=== PATIENT | female | born 1995 | race Caucasian/White ===

== ENCOUNTER → 2022-03-01 | Outpatient (CLI) | payer MEDICAID ==
[2022-03-01 10:02] LABS: HEMATOCRIT 39 % (35-52); HEMOGLOBIN 14.1 g/dL (11.5-16.0); MEAN CORPUSCULAR HEMOGLOBIN 33 pg (25-34); MEAN CORPUSCULAR HGB CONC 36 g/dL (32-36); MEAN CORPUSCULAR VOLUME 92 fL (80-99); MEAN PLATELET VOLUME 9.4 fL (9.0-12.2); PLATELET COUNT 210 10^3/uL (130-400); WHITE BLOOD COUNT 6.2 10^3/uL (4.3-11.0)
== END ==
LOC: LAB FS 09:40
PROVIDERS: ATTEND Family Medicine
DX: Z34.91 Encounter for supervision of normal pregnancy, unspecified, first trimester (principal); Z3A.08 8 weeks gestation of pregnancy
CPT/HCPCS: 36415; 85027; 86762; 86780; 86850; 86900; 86901; 87088; 87340; 87389

== ENCOUNTER → 2022-03-29 | Outpatient (CLI) | payer MEDICAID | LOC: LABNPT 09:30 | PROVIDERS: ATTEND Family Medicine | DX: Z34.91 Encounter for supervision of normal pregnancy, unspecified, first trimester (principal); Z3A.12 12 weeks gestation of pregnancy | CPT/HCPCS: 87491; 87591 ==

== ENCOUNTER → 2022-09-01 | Outpatient (CLI) | payer OTHER | LOC: LABNPT 13:17 → MERGE 13:17 | PROVIDERS: ATTEND Family Medicine | DX: B95.1 Streptococcus, group B, as the cause of diseases classified elsewhere (principal) | CPT/HCPCS: 87081 ==

== ENCOUNTER 2022-09-22 10:10 | Outpatient (CLI) | payer MEDICAID ==
[~2022-09-22] VITALS: Ht 162 cm; Wt 86.2 kg
[2022-09-22 10:30] VITALS: BP 134/76
[2022-09-22] MEDS ORDERED: PREN-37 PO (10:31)
[2022-09-22 11:05] VITALS: BP 134/76
[2022-09-22 15:00] VITALS: BP 137/77
[2022-09-22 15:50] VITALS: BP 137/77
--- NOTE | 2022-09-22 16:54 | Diagnostic Imaging Report ---
INDICATION: Variable decelerations EXAM: biophysical profile. FINDINGS: biophysical profile score was 6 out of 8. A deduction was taken on breathing. heart rate was 144 bpm. presentation is cephalic. RAYNA is 14.6. IMPRESSION: biophysical profile score was 6 out of 8. Dictated by: Dictated on workstation # [id number]
--- NOTE | 2022-09-23 08:33 | Physician Query-Final Dx ---
TRICIA,09/23/22 0833: Clinic Account Progress/Dx Physician Query: Please give diagnosis Please include # weeks gestation Date of Service Sep 22, 2022 at 10:10 CARLITOS BANKS DO 09/23/22 1013: Clinic Account Progress/Dx DIAGNOSIS: Diagnosis 37 WEEK IUP IRREGULAR CONTRACTIONS VAGINAL DISCHARGE TRICIA,AugSep 23, 2022 08:33 CARLITOS BANKS DO Sep 23, 2022 10:13
== END 2022-09-22 15:50 | disposition home or self-care (01) ==
LOC: WSo 10:10 → LDRP 10:10 → WSo 15:50
PROVIDERS: ATTEND Obstetrics & Gynecology
DX: O62.9 Abnormality of forces of labor, unspecified (principal); O23.593 Infection of other part of genital tract in pregnancy, third trimester; Z3A.37 37 weeks gestation of pregnancy
CPT/HCPCS: 76819; 99214

== ENCOUNTER 2022-10-05 06:14 | Inpatient (IN) | payer MEDICAID ==
[2022-10-05] VITALS (46 sets, daily range): BP systolic 99–129; BP diastolic 54–85
[~2022-10-05] VITALS: Ht 162.6 cm; Wt 87.2 kg
[~2022-10-05 06:14] MED LIST: PREN-37 PO
[2022-10-05] MEDS ORDERED: D5 LR IV SOLUTION 1,000 ML IV SCH (06:45)
[2022-10-05 07:11] LABS: BASOPHILS % (AUTO) 1 % (0-10); EOSINOPHILS # (AUTO) 0.1 10^3/uL (0.0-0.3); EOSINOPHILS % (AUTO) 1 % (0-10); HEMATOCRIT 36 % (35-52); HEMOGLOBIN 12.8 g/dL (11.5-16.0); LYMPHOCYTES # (AUTO) 1.4 10^3/uL (1.0-4.0); LYMPHOCYTES % (AUTO) 17 % (12-44); MEAN CORPUSCULAR HEMOGLOBIN 34 pg (25-34); MEAN CORPUSCULAR HGB CONC 35 g/dL (32-36); MEAN CORPUSCULAR VOLUME 97 fL (80-99); MEAN PLATELET VOLUME 9.8 fL (9.0-12.2); MONOCYTES # (AUTO) 0.5 10^3/uL (0.0-1.0); MONOCYTES % (AUTO) 6 % (0-12); NEUTROPHILS # (AUTO) 6.4 10^3/uL (1.8-7.8); NEUTROPHILS % (AUTO) 75 % (42-75); PLATELET COUNT 180 10^3/uL (130-400); WHITE BLOOD COUNT 8.5 10^3/uL (4.3-11.0)
[2022-10-05] MEDS ORDERED: OXYTOCIN PRE-MIX DRIP 500 ML IV ONE (07:19)
[2022-10-05] MEDS ORDERED: OXYTOCIN PRE-MIX DRIP 500 ML IV SCH (07:30)
--- NOTE | 2022-10-05 07:30 | History & Physical-OB ---
OB - Chief Complaint & HPI Date/Time Date of Admission: Date of Admission: Oct 05, 2022 at 06:26 Date seen by a Provider: Oct 05, 2022 Time Seen by a Provider: 07:15 Chief Complaint/History OB-Reason for Admission/Chief: Induction of Labor Hx : 4 Hx Para: 3 Expected Date of Delivery: Oct 06, 2022 Gestational Age in Weeks: 39 Gestational Age in Days: 6 Admission Nurse Assessment Rev: Yes History of Labs AB pos Antibody neg RI RPR NR HBsAg NR HIV NR GC neg GBS neg Allergies and Home Medications Allergies Coded Allergies: Penicillins (Verified Allergy, Mild, Hives, 09/22/22) Patient Home Medication List Home Medication List Reviewed: Yes Vit/Iron Fumarate/FA ( Tablet) 27 Mg Iron-800 Mcg Tablet, 1 EACH PO DAILY, (Reported) Entered as Reported by: AKOSUA LAMAS on 09/22/22 1031 OB - History Hx of Present Care: Yes Ultrasounds: Normal mid trimester US Obstetrical Complications: None Medical Complications: None Patient Past Medical History nc Social History/Family History 2nd Hand Smoke Exposure: No OB - Admission Exam Physical Exam HEENT: NCAT Heart: Rhythm Normal Lungs: Clear Abdomen: Gravid Extremities: Normal Reflexes: Normal Cervical Dilatation: 3cm Effacement: 75% Station: -2 Membranes: Intact Amniotic Fluid: Clear Heart Rate: 130's Accelerations: Accelerations Present Decelerations: No Decelerations Short Term Variability: Present Correction Variability: Average (6-25) Contractions on Admission: >10 Minutes Apart Intensity: Mild Labs Laboratory Tests Test 10/05/22 06:50 Range/Units White Blood Count 8.5 4.3-11.0 10^3/uL Red Blood Count 3.72 L 3.80-5.11 10^6/uL Hemoglobin 12.8 11.5-16.0 g/dL Hematocrit 36 35-52 % Mean Corpuscular Volume 97 80-99 fL Mean Corpuscular Hemoglobin 34 25-34 pg Mean Corpuscular Hemoglobin Concent 35 32-36 g/dL Red Cell Distribution Width 11.9 10.0-14.5 % Platelet Count 180 130-400 10^3/uL Mean Platelet Volume 9.8 9.0-12.2 fL Immature Granulocyte % (Auto) 0 % Neutrophils (%) (Auto) 75 42-75 % Lymphocytes (%) (Auto) 17 12-44 % Monocytes (%) (Auto) 6 0-12 % Eosinophils (%) (Auto) 1 0-10 % Basophils (%) (Auto) 1 0-10 % Neutrophils # (Auto) 6.4 1.8-7.8 10^3/uL Lymphocytes # (Auto) 1.4 1.0-4.0 10^3/uL Monocytes # (Auto) 0.5 0.0-1.0 10^3/uL Eosinophils # (Auto) 0.1 0.0-0.3 10^3/uL Basophils # (Auto) 0.0 0.0-0.1 10^3/uL Immature Granulocyte # (Auto) 0.0 0.0-0.1 10^3/uL OB - Assessment/Plan/Diagnosis Assessment Assessment: induction of labor Admission Dx 27 yo @ 39.6 week IOL GBS neg Admission Status: Inpatient Order (span 2 midnights) Reason for Inpatient Admission: IOL at 39 weeks Plan Plan: Induction Induction Method: CARLITOS SOFIA DO Oct 05, 2022 07:30
[2022-10-05] MEDS ORDERED: LACTATED RINGERS 1,000 ML IV ONE ×2 (09:53→10:45)
[2022-10-05] MEDS ORDERED: fentaNYL 2 mcg/ml BUPIVA 0.125 100 ML ONE (09:53)
[2022-10-05] MEDS ORDERED: fentaNYL INJ 100 MCG/2 ML AMP ONE (10:17)
[2022-10-05] MEDS ORDERED: BUPIVACAINE 0.25% 10 ML (SENSORCAINE) VIAL ONE (10:17)
[2022-10-05] MEDS ORDERED: ONDANSETRON 4 MG/2 ML (SDV) Z0FRAN IV PRN (10:45)
[2022-10-05] MEDS ORDERED: diphenhydrAMINE 50 MG/ML INJ (BENADRYL) IV PRN (10:45)
[2022-10-05] MEDS ORDERED: CATHETER FLUSH 10 ML SYR IV PRN (10:45)
[2022-10-05] MEDS ORDERED: NALOXONE 0.4 MG/ML 1 ML (NARCAN) VIAL IV PRN ×2 (10:45→15:00)
[2022-10-05] MEDS ORDERED: fentaNYL 2 mcg/ml BUPIVA 0.125 100 ML IV SCH (10:45)
[2022-10-05] MEDS ORDERED: CATHETER FLUSH 10 ML SYR IV SCH ×2 (14:00→22:00)
[2022-10-05] MEDS ORDERED: LIDOCAINE 1% INJ 10 ML VIAL ONE (14:17)
[2022-10-05] MEDS: OXYTOCIN PRE-MIX DRIP 500 ML IV SCH ×2 (14:41→15:17)
--- NOTE | 2022-10-05 14:55 | OB Labor & Delivery Record ---
L&D History Date of Service Date of Service: Oct 05, 2022 History Expected Date of Delivery: Oct 06, 2022 Gestational Age in Weeks: 39 Hx : 4 Hx Para: 3 Complications Events: Routine care Operative Indications (Cesarea: N/A-Vaginal Delivery Intrapartal Events: None L&D Stage1 Stage One Onset of Labor - Date: Oct 05, 2022 Monitors and Tracing Monitor Mode: External Heart Rate: 125 Station: 0 Retirement Variability: Average (6-10) Short Term Variability: Present Presentation: Vertex Vital Signs VS - Last 72 Hours, by Label 10/05/22 10/05/22 10/05/22 10/05/22 07:30 07:45 08:00 08:15 Temp 36.6 Pulse 91 72 75 75 Resp 18 18 18 18 B/P (MAP) 120/79 (93) 115/72 (86) 117/75 (89) 116/76 (89) O2 Delivery Room Air Room Air Room Air Room Air 10/05/22 10/05/22 10/05/22 10/05/22 08:30 08:45 09:00 09:15 Pulse 76 88 75 85 Resp 18 18 18 18 B/P (MAP) 120/72 (88) 117/76 (90) 123/84 (97) 121/82 (95) O2 Delivery Room Air Room Air Room Air Room Air 10/05/22 10/05/22 10/05/22 10/05/22 09:30 09:45 10:00 10:15 Pulse 77 81 80 75 Resp 18 18 18 18 B/P (MAP) 125/85 (98) 117/78 (91) 128/78 (95) 121/77 (92) O2 Delivery Room Air Room Air Room Air Room Air 10/05/22 10/05/22 10/05/22 10/05/22 10:25 10:30 10:35 10:40 Temp 36.3 Pulse 70 70 80 75 Resp 18 18 18 18 B/P (MAP) 125/63 (83) 126/84 (98) 129/74 (92) 128/79 (95) Pulse Ox 99 100 100 98 O2 Delivery Room Air Room Air Room Air Room Air 10/05/22 10/05/22 10/05/22 10/05/22 10:45 10:50 10:55 10:56 Pulse 81 66 65 62 Resp 18 18 18 18 B/P (MAP) 125/73 (90) 99/54 (69) 103/56 (72) 114/58 (76) Pulse Ox 97 97 96 O2 Delivery Room Air Room Air Room Air Room Air 10/05/22 10/05/22 10/05/22 10/05/22 11:00 11:15 11:30 11:45 Pulse 70 66 67 67 Resp 18 18 18 18 B/P (MAP) 115/66 (82) 121/72 (88) 123/76 (92) 123/76 (92) Pulse Ox 96 98 98 98 O2 Delivery Room Air Room Air Room Air Room Air 10/05/22 10/05/22 10/05/22 10/05/22 12:00 12:15 12:30 12:45 Temp 35.9 Pulse 69 59 71 70 Resp 18 18 18 18 B/P (MAP) 113/64 (80) 119/69 (86) 122/69 (86) 117/65 (82) Pulse Ox 99 100 100 98 O2 Delivery Room Air Room Air Room Air Room Air 10/05/22 10/05/22 10/05/22 10/05/22 13:00 13:15 13:30 13:45 Pulse 71 71 69 78 Resp 18 18 18 18 B/P (MAP) 113/55 (74) 111/69 (83) 126/73 (90) 113/67 (82) Pulse Ox 99 99 99 100 O2 Delivery Room Air Room Air Room Air Room Air Rupture of Membranes Spontaneous Ruture of Membrane: No Amniotic Membrane Rupture Time: 0716 Amniotic Membrane Fluid Desc.: Clear Vaginal Bleeding Description: Normal Show Induction/Anesthesia Epidural Cath Placement - Time: 1031 Progress/Notes Patient admitted for IOL. AROM performed, and pitocin augmentation started. She progressed rapidly to complete and +1 station after an epidural was placed L&D Stage2 Stage Two Stage II Date: Oct 05, 2022 Monitors and Tracing Monitor Mode: External Heart Rate: 125 Monitor Accelerations: Uniform Monitor Decelerations: Variable Retirement Variability: Average (6-10) Short Term Variability: Present Position: Right Occiput Anterior Presentation: Vertex Cord Descript/Complications Cord Vessel Description: 3 Vessels Complications nuchal reduced x 2 Delivery Type Delivery Method: Spontaneous Vaginal Anterior Shoulder: Left Episiotomy/Perineal Laceration Laceraction(s)/Extensions: Yes Episiotomy Description: Perineal Extension/lac, 1st degree Degree (describe repair) repaired using 3-0 rapide in usual fashion Condition of Delivery 1 minute Comment: 8 5 minute Comment: 9 Notes Live male infant weight 7lbs 15 oz. Condition of Condition of Infant: Living Exam: No Observed Abnormalities Resuscitation Resuscitation: N/A - Spontaneous Resp L&D Stage3 Stage Three Stage III Date: Oct 05, 2022 Pictocin Pitocin Administration mu/min: 8 Pitocin ml/hr: 8 Pitocin Administration Comment: 30 mu wide open after delivery of placenta Placenta Delivery Placenta Delivery: Spontaneous Delivery Summary Summary Estimated blood loss (mL): 200 Attending at delivery: Carlitos Banks DO Condition of Delivery Examined: Cervix Examined, Uterus Explored Post Hemorrhage: No Condition of Mother stable Condition of Infant (s) stable CARLITOS BANKS DO Oct 05, 2022 14:55
--- NOTE | 2022-10-05 14:56 | Discharge Inst-Women's Service ---
Discharge Inst-Women's Serv Depart Medication/Instructions New, Converted or Re-Newed RX: Transmitted to Pharmacy Final Diagnosis PPD 1 NVD Problems Reviewed?: Yes Consults/Follow Up Additional Follow Up: Yes Orders/Referrals Dr. Banks in 6 weeks Activity Activity: Activity as Tolerated Driving Instructions: No Driving for 1 Week NO SMOKING: NO SMOKING Nothing Inside Vagina: No Douching, No [place], No Tampons Diet Discharge Diet: No Restrictions Symptoms to Report to : Bleeding Excessive, Pain Increased, Fever Over 101 Degrees F, Vaginal Bleeding Increase, Questions/Concerns For Any Problems or Questions: Contact Your Physician CARLITOS BANKS DO Oct 05, 2022 14:56
[2022-10-05] MEDS ORDERED: DOCU100C37 PO (14:57)
[2022-10-05] MEDS ORDERED: BENZ78AE5 TP (14:57)
[2022-10-05] MEDS ORDERED: DIBU30OI TOP (14:57)
[2022-10-05] MEDS ORDERED: IBUP-844 PO (14:57)
[2022-10-05] MEDS ORDERED: FERR325T24 PO (14:57)
[2022-10-05] MEDS ORDERED: ACHD5005 PO (14:57)
[2022-10-05] MEDS ORDERED: HYDROcodone/APAP 5 MG/325 MG (LORTAB) TAB PO PRN (15:00)
[2022-10-05] MEDS ORDERED: BENZOCAINE/MENTHOL (DERMOPLAST) 56 ML CAN TP PRN (15:00)
[2022-10-05] MEDS ORDERED: MEASLES,MUMPS,RUBELLA 1 EA INJ SQ ONE (15:00)
[2022-10-05] MEDS ORDERED: TETANUS,DIPTH,PERTUSS P/F (BOOSTRIX) 0.5 ML VIAL IM ONE (15:00)
[2022-10-05] MEDS ORDERED: WITCH HAZEL(TUCKS) 40 EA JAR TOP PRN (15:00)
[2022-10-05] MEDS ORDERED: DIBUCAINE 1% OINTMENT 28 GM TUBE TOP PRN (15:00)
[2022-10-05] MEDS: IBUPROFEN 600 MG (MOTRIN) TAB PO SCH ×2 (15:17→20:43)
[2022-10-05] MEDS: DOCUSATE SODIUM 100 MG (COLACE) CAP PO SCH (20:43)
[2022-10-06 00:55] VITALS: BP 109/68
[2022-10-06 03:50] VITALS: BP 112/70
[2022-10-06] MEDS: IBUPROFEN 600 MG (MOTRIN) TAB PO SCH ×3 (03:50→15:39)
[2022-10-06 05:54] LABS: BASOPHILS % (AUTO) 0 % (0-10); EOSINOPHILS # (AUTO) 0.1 10^3/uL (0.0-0.3); EOSINOPHILS % (AUTO) 1 % (0-10); HEMATOCRIT 32 % (35-52); LYMPHOCYTES # (AUTO) 1.5 10^3/uL (1.0-4.0); LYMPHOCYTES % (AUTO) 18 % (12-44); MEAN CORPUSCULAR HEMOGLOBIN 34 pg (25-34); MEAN CORPUSCULAR HGB CONC 34 g/dL (32-36); MEAN CORPUSCULAR VOLUME 99 fL (80-99); MEAN PLATELET VOLUME 9.9 fL (9.0-12.2); MONOCYTES # (AUTO) 0.5 10^3/uL (0.0-1.0); MONOCYTES % (AUTO) 6 % (0-12); NEUTROPHILS # (AUTO) 6.2 10^3/uL (1.8-7.8); NEUTROPHILS % (AUTO) 74 % (42-75); PLATELET COUNT 131 10^3/uL (130-400); WHITE BLOOD COUNT 8.4 10^3/uL (4.3-11.0)
--- NOTE | 2022-10-06 07:28 | Postpartum Progress Note ---
Note Note Day # 1 Subjective: Patient is without complaints. Ambulating, voiding. Tolerating a regular diet without nausea or vomiting. Normal lochia. Pain is well controlled with oral pain medications. Objective: Physical Exam: General - Alert and oriented, no apparent distress Abdomen - Soft, appropriately tender to palpation, non-distended, fundus firm at umbilicus Extremities - no edema, negative Yadira's bilaterally Assessment: PPD 1 NVD Acute blood loss anemia Plan: Routine care. Encourage breast feeding. Encourage ambulation. Ferrous sulfate supplementation. Plan for discharge today Vitals - Labs Vital Signs - I&O Vital Signs Date Time Temp Pulse Resp B/P (MAP) Pulse Ox O2 Delivery O2 Flow Rate FiO2 10/06/22 03:50 36.4 65 18 112/70 (84) 97 Room Air 10/06/22 00:55 36.4 70 18 109/68 (82) 97 Room Air 10/05/22 20:43 36.8 70 18 113/75 (88) 98 Room Air 10/05/22 16:45 78 18 120/57 (78) Room Air 10/05/22 16:30 71 18 120/60 (80) Room Air 10/05/22 16:15 73 18 115/58 (77) Room Air 10/05/22 16:00 73 18 127/61 (83) Room Air 10/05/22 15:45 67 18 114/64 (81) Room Air 10/05/22 15:30 67 18 115/63 (80) Room Air 10/05/22 15:15 64 18 114/62 (79) Room Air 10/05/22 15:00 67 18 107/58 (74) Room Air 10/05/22 14:45 36.5 80 18 108/58 (75) Room Air 10/05/22 14:30 141 18 128/69 (88) Room Air 10/05/22 14:15 65 18 122/67 (85) 100 Room Air 10/05/22 14:00 65 18 122/67 (85) 100 Room Air 10/05/22 13:45 78 18 113/67 (82) 100 Room Air 10/05/22 13:30 69 18 126/73 (90) 99 Room Air 10/05/22 13:15 71 18 111/69 (83) 99 Room Air 10/05/22 13:00 71 18 113/55 (74) 99 Room Air 10/05/22 12:45 70 18 117/65 (82) 98 Room Air 10/05/22 12:30 35.9 71 18 122/69 (86) 100 Room Air 10/05/22 12:15 59 18 119/69 (86) 100 Room Air 10/05/22 12:00 69 18 113/64 (80) 99 Room Air 10/05/22 11:45 67 18 123/76 (92) 98 Room Air 10/05/22 11:30 67 18 123/76 (92) 98 Room Air 10/05/22 11:15 66 18 121/72 (88) 98 Room Air 10/05/22 11:00 70 18 115/66 (82) 96 Room Air 10/05/22 10:56 62 18 114/58 (76) Room Air 10/05/22 10:55 65 18 103/56 (72) 96 Room Air 10/05/22 10:50 66 18 99/54 (69) 97 Room Air 10/05/22 10:45 81 18 125/73 (90) 97 Room Air 10/05/22 10:40 75 18 128/79 (95) 98 Room Air 10/05/22 10:35 80 18 129/74 (92) 100 Room Air 10/05/22 10:30 70 18 126/84 (98) 100 Room Air 10/05/22 10:25 36.3 70 18 125/63 (83) 99 Room Air 10/05/22 10:15 75 18 121/77 (92) Room Air 10/05/22 10:00 80 18 128/78 (95) Room Air 10/05/22 09:45 81 18 117/78 (91) Room Air 10/05/22 09:30 77 18 125/85 (98) Room Air 10/05/22 09:15 85 18 121/82 (95) Room Air 10/05/22 09:00 75 18 123/84 (97) Room Air 10/05/22 08:45 88 18 117/76 (90) Room Air 10/05/22 08:30 76 18 120/72 (88) Room Air 10/05/22 08:15 75 18 116/76 (89) Room Air 10/05/22 08:00 75 18 117/75 (89) Room Air 10/05/22 07:45 72 18 115/72 (86) Room Air 10/05/22 07:30 36.6 91 18 120/79 (93) Room Air I & O 10/06/22 07:00 Intake Total 3000 ml Balance 3000 ml Labs Laboratory Tests 10/06/22 05:00: White Blood Count 8.4, Red Blood Count 3.22L, Hemoglobin 11.0L, Hematocrit 32L, Mean Corpuscular Volume 99, Mean Corpuscular Hemoglobin 34, Mean Corpuscular Hemoglobin Concent 34, Red Cell Distribution Width 11.9, Platelet Count 131, Mean Platelet Volume 9.9, Immature Granulocyte % (Auto) 1, Neutrophils (%) (Auto) 74, Lymphocytes (%) (Auto) 18, Monocytes (%) (Auto) 6, Eosinophils (%) (Auto) 1, Basophils (%) (Auto) 0, Neutrophils # (Auto) 6.2, Lymphocytes # (Auto) 1.5, Monocytes # (Auto) 0.5, Eosinophils # (Auto) 0.1, Basophils # (Auto) 0.0, Immature Granulocyte # (Auto) 0.1 CARLITOS BANKS DO Oct 06, 2022 07:28
[2022-10-06] MEDS ORDERED: FERROUS SULF 325 MG (IRON) TAB PO SCH (09:00)
--- NOTE | 2022-10-06 09:06 | Anesthesia-Regional Post-Op ---
Regional Patient Condition Mental Status: Alert, Oriented x3 Circulation: Same as Pre-Op Headache: Absent Sensation: Full Recovery Motor Block: Absent Post Op Complications Complications None Follow Up Care/Instructions Patient Instructions None needed. Anesthesia/Patient Condition Patient is doing well, no complaints, stable vital signs, no apparent adverse anesthesia problems. No complications reported per nursing. D/C home per [facility] [place] Criteria: Yes JESSIE COTE CRNA Oct 06, 2022 09:06
[2022-10-06 09:50] VITALS: BP 126/69
[2022-10-06] MEDS: DOCUSATE SODIUM 100 MG (COLACE) CAP PO SCH (09:53)
[2022-10-06 15:40] VITALS: BP 124/63
== END 2022-10-06 17:00 | disposition home or self-care (01) | DRG 806 ==
LOC: LDRP 06:26 → WS 18:30
PROVIDERS: ADMIT Obstetrics & Gynecology; ATTEND Obstetrics & Gynecology
PROC: 10E0XZZ Delivery of Products of Conception, External Approach (ICD-10-PCS; principal; 2022-10-05)
PROC: 0HQ9XZZ Repair Perineum Skin, External Approach (ICD-10-PCS; 2022-10-05)
PROC: 10907ZC Drainage of Amniotic Fluid, Therapeutic from Products of Conception, Via Natural or Artificial Opening (ICD-10-PCS; 2022-10-05)
DX: O70.0 First degree perineal laceration during delivery (principal); D62 Acute posthemorrhagic anemia; Z37.0 Single live birth; Z3A.39 39 weeks gestation of pregnancy; O69.81X0 Labor and delivery complicated by cord around neck, without compression, not applicable or unspecified; O90.81 Anemia of the puerperium; Z28.310 Unvaccinated for COVID-19
CPT/HCPCS: 36415; 85025; 86780; 86850; 86900; 86901